=== PATIENT | male | born 1965 | race Caucasian/White ===

== ENCOUNTER 2024-08-09 12:04 | Outpatient (CLI) | payer OTHER, SELFPAY ==
--- OUTSIDE RECORDS SUMMARY | 2024-08-09 12:37 | XMS_ITS | Clinical Summary ---
Author Organization [facility] Address [address] [place] [address] Care Team Providers Care Rig Supervisor Name Role Phone Bette Dunham MD Primary Care Provider [phone] Source Comments [facility],non-owned Affiliates and Associated Physician Practices is amultiple site organization consisting of ambulatory clinics and hospital sitesin [place], [place], [place] and [place]. This disclosure is being madepursuant to the Care Everywhere program and may not contain all information available regarding this patient. Last updated 17.[facility] Allergies Active Allergy Reactions Criticality Noted Date Comments Amoxicillin 09/06/2013 Penicillins Urticaria,Shortness of Breath High 09/05 Medications * Be aware that medications may not be up to date on this document. Alwaysverify current medications with the patient. meloxicam (MOBIC) 15 MG tablet Take 1 (one) tablet by mouth once daily 017 Active KEFLEX 500 MG capsule TAKE 1 CAPSULE TWICE DAILY FOR 10 DAYS. 10 capsule 022 Active doxycycline hyclate (Vibramycin) 100 MG capsule Take 1 (one) capsule by mouth 2 times daily with morning and evening meal 023 Active Blood Pressure Monitoring (Blood Pressure Digital Soln) KIT 024 Active insulin aspart (NovoLOG) vial INJECT UP TO 75 UNITS TOTALDAILY DOSE VIA INSULIN PUMP 70 mL 3 024 Active blood glucose (Accu-Chek Guide) test stripIndications:Type 1 diabetes mellitus without complication (HCC) Use as directed 400 strip 3 024 Active escitalopram (Lexapro) 10 MG tablet Take 1 (one) tablet by mouth once daily 90 tablet 1 025 Active ALPRAZolam (Xanax) 0.25 MG tablet Take 1 (one) tablet by mouth 3 times daily as needed for Anxiety 30 tablet 1 025 Active pravastatin (Pravachol) 40 MG tabletIndications:Pure hypercholesterolemia TAKE 1 TABLET AT BEDTIME 90 tablet 1 025 Active losartan (Cozaar) 25 MG tablet TAKE 1 TABLET ONCE DAILY 90 tablet 1 025 Active losartan (Cozaar) 25 MG tablet Take 1 (one) tablet by mouth once daily 90 tablet 1 024 07/12 Discontinued pravastatin (Pravachol) 40 MG tabletIndications:Pure hypercholesterolemia TAKE 1 TABLET AT BEDTIME 90 tablet 024 07/12 Discontinued Active Problems Problem Noted Date Diagnosed Date Hyperlipidemia 04/26/2019 Diabetes mellitus 04/26/2019 Diabetes mellitus type 1, uncontrolled 6 Arachnoid cyst 02/23/2014 Encounters Date Type Department Care Team Description 07/11/2024 Refill [facility] - Endocrinology [address] [place] [phone] Esau Garcia MD Refill Request 07/07/2024 Refill [facility] - Endocrinology [address] [place] [phone] Esau Garcia MD MEDICATION REFILL 06/07/2024 9:45 AM [employer] Office Visit [facility] - Endocrinology [address] [place] [phone] Esau Garcia MD Type 1 diabetes mellitus without complication (Primary Dx) 06/07/2024 Travel from Last 3 Months Social History Tobacco Use Types Packs/Day Years Used Date Smoking Tobacco: Never Smokeless Tobacco: Never Tobacco Cessation:Counseling Given: Not Answered Alcohol Use Standard Drinks/Week Comments Yes 0 (1 standard drink = 0.6 oz pur e alcohol) socially PHQ-2 Answer Date Recorded Patient Health Questionnaire-2 Score 0 06/07/2024 Sex and Gender Information Value Date Recorded Sex Assigned at Male 08/21/2020 9:11 AM CDT Legal Sex Male 5:12 AM [employer] Gender Identity Male 08/21/2020 9:11 AM CDT Sexual Orientation Straight 08/21/2020 9: 11 AM CDT Last Filed Vital Signs Vital Sign Reading Time Taken Comments Blood Pressure 130/78 06/07/2024 9:54 AM [employer] Pulse 79 06/07/2024 9:54 AM [employer] Temperature - - Respiratory Rate - - Oxygen Saturation 97% 06/07/2024 9:54 AM [employer] Inhaled Oxygen Concentration - - Weight 102.2 kg (225 lb 6.4 oz) 06/07/2024 9:54 AM [employer] Height 180.3 cm (5' 11 ) 06/07/2024 9:54 AM [employer] Body Mass Index 31.44 06/07/2024 9:54 AM [employer] Plan of Treatment Upcoming Encounters Date Type Department Care Team (Late st Contact Info) Description 02/21/2025 9:15 AM [employer] Office Visit [facility] - [facility]ology [address] [facility] [address] [place] [phone] Esau Garcia MD [address] [place] [phone] Health Maintenance Due Date Last Done Comments COLON MONITORING 1966 COLONOSCOPY - COLON CA SCREENING 1966 CT COLONOGRAPHY - COLON CA SCREENING 1966 FIT - COLON CA SCREENING 1966 FLEX SIG - COLON CA SCREENING 1966 HIV SCREENING 1981 HEPATITIS C SCREENING 12/02/1984 DTAP/TDAP/TD VACCINES (1 - Tdap) 1985 HEPATITIS B VACCINE (1 of 3 - 19+ 3-dose series) 1985 PNEUMOCOCCAL VACCINE 50+ (1 of 2 - PCV) 1985 ZOSTER VACCINE (1 of 2) 2016 COLOGUARD (AGES 45-75) - COLON CA SCREENING 05/03/2022 05/03/2019 Colorectal Cancer Screening 05/03/2022 COVID-19 VACCINE ( - 2023- season) 2023 DIABETES-HGB A1C 09/09/2024 06/09/2024, 11/2023, 03/03/2023, Additional history exists INFLUENZA VACCINE (Season Ended) 2024 DIABETES-FOOT EXAM WITH MONOFILAMENT 06/07/2025 06/07/2024, 10/12/2012 DIABETES - URINE PROTEIN SCREENING 06/09/2025 06/09/2024, 10/13/2023, 03/03/2023, Additional history exists DIABETES-SERUM CREATININE 06/09/20252024, 10/13/2023, 03/03/2023, Additional history exists DIABETES RETINOPATHY SCREENING 06/10/2026 06/10/2024, 05/06/2023, 03/25/2022, Additional history exists DEPRESSION SCREENING Completed 06/07/2024, 08/20/19 23 HIB VACCINE Aged Out No longer eligi ble based on patient's age to complete this topic HPV VACCINE Aged Out No longer eligi ble based on patient's age to complete this topic MENINGOCOCCAL (Group B) VACCINE SHARED DECISION-MAKING Aged Out No longer eligible based on patient's age to complete this topic MENINGOCOCCAL GROUPS A/C/Y/W VACCINE Aged Out No longer eligible based on patient's age to complete this topic Goals Goal Patient Goal Type Associated Problems Recent Progress Patient-Stated? Author HEMOGLOBIN A1C < 7.0 Result Component 9.2(06/09/2024 1:42 PM [employer]) Tiffany Farrell MA Procedures Procedure Name Priority Date/Time Associated Diagnosis Comments EYE EXAM 06/10/2024 HEMOGLOBIN A1C Routine 06/09/2024 1:42 PM [employer] Type 1 diabetes mellitus without complication BASIC METABOLIC PANEL (CALCIUM TOTAL) Routine 06/09/2024 1:42 PM [employer] Type 1 diabetes mellitus without complication MICROALB/CREAT RATIO URINE RANDOM PANEL Routine 06/09/2024 1:41 PM [employer] Type 1 diabetes mellitus without complication [place] COLLECT CAPILLARY BLOOD SPEC Routine 06/07/2024 5:41 PM [employer] Type 1 diabetes mellitus without complication GLUCOSE - POINT OF CARE (AMB) STL Routine 06/07/2024 10:00 AM [employer] Type 1 diabetes mellitus without complication from Last 3 Months Results * EYE EXAM (06/10/2024) Anatomical Region Laterality Modality Other 06/10/2024 Narrative 06/10/2024 Ordered by an unspecified provider. us Scanned Document SCANNING ONLY Final Result * (ABNORMAL) HEMOGLOBIN A1C (06/09/2024 1:42 PM [employer]) Hemoglobin A1c 9.2(H) 4.8 - 5.6 % [facility] INSURANCE BILL Comment: Prediabetes: 5.7 - 6.4 Diabetes: >6.4 Glycemic control for adults with diabetes: <7.0 Blood BLOOD SPECIMEN / Unknown 06/09/2024 1:42 PM [employer] 06/09/2024 Narrative [facility] INSURANCE BILL - 06/10/2024 6:06 AM [employer] Performed at: 01 - [id number] Sql Developer: Evan Sterling PhD, Phone: [phone] us Esau Garcia MD LAB - CHEMISTRY ORDERABLES F inal Result [facility] INSURANCE BILL [address] [place] [address] * (ABNORMAL) BASIC METABOLIC PANEL (CALCIUM TOTAL) (06/09/2024 1:42 PM [employer]) Glucose 155(H) 70 - 99 mg/dL [facility] INSURANCE BILL BUN 10 6 - 24 mg/dL [facility] INSURANCE BILL Creatinine 0.67(L) 0.76 - 1.27 mg/dL [facility] INSURANCE BILL eGFR by CKD-EPI 109 >59 mL/min/1.7 3 [facility] INSURANCE BILL BUN/Creatinine Ratio 15 9 - 20 [facility] INSURANCE BILL Sodium 138 134 - 144 mmol/L [facility] INSURANCE BILL Potassium 4.8 3.5 - 5.2 mmol/L [facility] INSURANCE BILL Chloride 103 96 - 106 mmol/L [facility] INSURANCE BILL CO2 22 20 - 29 mmol/L [facility] INSURANCE BILL Calcium 9.1 8.7 - 10.2 mg/dL [facility] INSURANCE BILL Blood BLOOD SPECIMEN / Unknown 06/09/2024 1:42 PM [employer] 06/09/2024 Narrative [facility] INSURANCE BILL - 06/10/2024 9:07 AM [employer] Performed at: [id number] Sql Developer: Evan Sterling PhD, Phone: [phone] Esau Garcia MD LAB - CHEMISTRY ORDERABLES F inal Result Performing Organization Address [facility] Co de Phone Number [facility] INSURANCE BILL [address] [place] [address] * MICROALB/CREAT RATIO URINE RANDOM PANEL (06/09/2024 1:41 PM [employer]) Creatinine Urine 78.8 Not Estab. mg/dL [facility] INSURANCE BILL Microalbumin Urine 7.9 Not Estab. ug/mL [facility] INSURANCE BILL Microalbumin/Crea tinine Ratio 10 0 - 29 mg/g creat [facility] INSURANCE BILL Comment: Normal: 0 - 29 Moderately increased: 30 - 300 Severely increased: >300 Urine URINE SPECIMEN OBTAINED BY CLEAN CATCH PROCEDURE / Unknown 06/09/2024 1:41 PM [employer] 06/09/2024 Narrative [facility] INSURANCE BILL - 06/10/2024 12:07 PM [employer] Performed at: [address] [id number] Sql Developer: Evan Sterling PhD, Phone: [phone] Esau Garcia MD LAB - URINE CHEMISTRY ORDERA BLES Final Result Performing Organization Address [facility] de Phone Number [facility] INSURANCE BILL [address] [place] [address] * [place] COLLECT CAPILLARY BLOOD SPEC (06/07/2024 5:41 PM [employer]) 06/07/2024 5:41 PM [employer] Esau Garcia MD [facility] - LABORATORY Final Resul t * (ABNORMAL) GLUCOSE - POINT OF CARE (AMB) STL (06/07/2024 10:00 AM [employer]) Glucose 128(A) 60 - 100 mg/dL [facility] [address] [place] Lot # [id number] [facility] Expiration Date 05/29/25 [facility] QC Verified Yes Yes [facility] Blood BLOOD SPECIMEN / Unknown 06/07/2024 10:00 AM [employer] Esau Garcia MD LAB - POINT OF CARE ORDERABL ES Final Result [facility] [address] [facility] [address] [phone] from Last 3 Months Insurance [facility] Care Teams Rig Supervisor Relationship Specialty Start Date End Date Bette Dunham MD [address] [place] [phone] PCP - General Family Medicine 09/03/19
[2024-08-09 13:29] LABS: Uric Acid 2.5 mg/dL (3.5-8.5)
== END 2024-08-09 12:05 | disposition home or self-care (01) ==
LOC: ANHLAB 12:05
PROVIDERS: Visit Provider Nurse Practitioner Family
DX: M10.9 Gout, unspecified (principal)
CPT/HCPCS: 36415; 84550